=== PATIENT | male | born 1975 | race Two or more races ===

== ENCOUNTER 2024-01-14 23:25 | Emergency (ER) | payer OTHER ==
[~2024-01-14] VITALS: Ht 177.8 cm; Wt 108.9 kg
[2024-01-15] MEDS ORDERED: KETOROLAC TROMETHAMINE 10 MG TABLET PO STA (00:19)
[2024-01-15] MEDS ORDERED: KETO10TA2 PO (01:33)
== END 2024-01-15 01:43 ==
LOC: ER 23:25
DX: S69.82XA Other specified injuries of left wrist, hand and finger(s), initial encounter (principal); W18.39XA Other fall on same level, initial encounter; Y93.89 Activity, other specified; Y92.413 State road as the place of occurrence of the external cause